=== PATIENT | female | born 1965 | race Caucasian/White ===

== ENCOUNTER 2018-05-17 00:16 | Outpatient (CLI) | payer MEDICAID, SELFPAY ==
--- NOTE | 2018-05-17 16:00 | DI.MAMMO_ITS ---
SYMPTOM/DIAGNOSIS: SCREENING, Z12.31 MAMMOGRAMS: Mammograms were interpreted according to the usual protocol including computer analysis with CAD system, tomosynthesis and C view imaging. The breast tissue is radiodense which lowers the sensitivity of the study. There is no dominant mass. There are numerous small bilateral punctate calcifications. No suspicious clusters are identified. There has been no appreciable interval change when compared with the prior study. SUMMARY: No evidence of malignancy. Category 2. Yearly screening mammography is recommended. Breast density, category D. MQSA ASSESSMENT OF FINDINGS: Negative with benign findings. Category 2. Patient will receive a letter notifying them of these results. BI-RADS category D. The breasts are extremely dense, which lowers the sensitivity of mammography.
== END 2018-05-17 00:36 ==
PROVIDERS: PCP Nurse Practitioner Family; Visit Provider Nurse Practitioner Family
DX: Z12.31 Encounter for screening mammogram for malignant neoplasm of breast (principal)
CPT/HCPCS: 77063; 77067

== ENCOUNTER 2020-11-13 11:57 | Outpatient (REF) | payer MEDICAID, SELFPAY ==
--- NOTE | 2020-11-13 16:15 | PAPFT_PTH ---
PATIENT: Newton Xie LOC: [facility] U#:[id number] AGE/SX: 54/F ROOM: RE11/13/[address]: Flaquita Dia APRN : 1965 BED: DIS: 11/13/2020 SPEC #: [id number] RECD: 11/14/20 12:57 STATUS: SUSAN REAna #: [id number] [place]: 11/13/20 16:[address]: Flaquita Dia DEPT: [facility] Cytology RECD BY: Falguni Car Tissues: 1 - CX/ENDOCX FOR PAP SMEARS Procedures: PAP THIN PREP/UVM Screening HPV DNA PROBE Comments: [id number]
== END 2020-11-13 11:58 | disposition home or self-care (01) ==
LOC: LBN 11:57
PROVIDERS: PCP Nurse Practitioner Family; Visit Provider Nurse Practitioner Family
DX: Z12.4 Encounter for screening for malignant neoplasm of cervix (principal); Z11.51 Encounter for screening for human papillomavirus (HPV); Z87.410 Personal history of cervical dysplasia; R87.610 Atypical squamous cells of undetermined significance on cytologic smear of cervix (ASC-US)
CPT/HCPCS: 88142; 87624

== ENCOUNTER 2020-11-20 03:37 | Outpatient (CLI) | payer MEDICAID, SELFPAY ==
[2020-11-20 09:35] LABS: Anion Gap 9.8 mmol/L (3-11); BUN 12 mg/dL (7-18); CO2 26.2 mmol/L (21.0-32.0); CREATININE 0.8 mg/dL (0.55-1.02); Calcium 8.9 mg/dL (8.5-10.1); Calculated LDL 75 mg/dL (<100); Chloride 106 mmol/L (98-107); Cholesterol 153 mg/dL (<200); Glucose 88 mg/dL (74-106); HDL Cholesterol 63 mg/dL (40-60); Potassium 4.3 mmol/L (3.5-5.1); Sodium 142 mmol/L (136-145); Triglyceride 79 mg/dL (<150)
== END 2020-11-20 03:38 | disposition home or self-care (01) ==
LOC: LBO 03:37
PROVIDERS: PCP Nurse Practitioner Family; Visit Provider Nurse Practitioner Family
DX: Z13.220 Encounter for screening for lipoid disorders (principal); Z13.1 Encounter for screening for diabetes mellitus
CPT/HCPCS: 36415; 80048; 80061

== ENCOUNTER 2020-12-09 02:19 | Outpatient (CLI) | payer MEDICAID, SELFPAY ==
--- NOTE | 2020-12-09 07:30 | DI.CTLCSR_ITS ---
Exam(s) CT CHEST LUNG CANCER SCREEN EXAM: CT CHEST LUNG CANCER SCREEN CLINICAL HISTORY: Screening for lung cancer,CURRENT SMOKER, F17.210,Z12.2. TECHNIQUE: Imaging Protocol: Low Dose Technique CONTRAST MATERIAL: None COMPARISON: CT CHEST HIGH RESOLUTION from 04/15/2015 FINDINGS: CHEST: LUNGS:. Biapical scarring noted. There is a 4 millimeter noncalcified nodular infiltrate in the righ t upper lobe sub apical region. There are no other significant focal right lung findings and there i s no pleural effusion. In the opposite-left lung there are mild benign-appearing increased markings anteriorly in the left u pper lobe-superior lingular segment region. Also mild increased markings in the medial aspect of the posterior basal segment left lower lobe. Also mild infiltrate in the inferior lingular segment of t he left lung. There are no pleural effusions on either side. No findings in the trachea and mainste m bronchi. MEDIASTINUM: There is no obvious hilar nor mediastinal adenopathy. CARDIAC: Heart size is normal. There is no pericardial effusion.Caliber of the thoracic aorta is wit hin normal limits. OTHER: OSSEOUS: No significant osseous lesions.. IMPRESSION: 1. There is a 4 millimeter noncalcified nodular infiltrate in the sub apical region of the right uppe r lobe. Not evident on the previous March 2015 study. 2. Other findings as above. No obvious intrathoracic adenopathy. No pleural effusions. 3. Lung RADS Cat 3 - Probably Benign: Probably benign finding(s) - short term follow-up suggested; in clude nodules with a low likelihood of becoming a clinically active cancer. Lung-RADS 1.0 CATEGORIES: Category 0 - Prior chest CT exam(s) being located for comparison. Category 1 - Annual screening in 12 months. No nodules or definitely benign nodules. Category 2 - Annual screening in 12 months. Benign appearance. Nodules with low likelihood of becomin g active cancer. Category 3 - 6-month follow-up. Probably benign. Short-term follow-up suggested. Nodules with low lik elihood of becoming active cancer. Category 4A - 3-month follow-up and CT/PET if >8 mm in size. Suspicious finding. Findings which requi re additional testing. Category 4B - Findings which require additional testing and tissue sampling. Modifier S- Potentially clinically significant findings (non lung cancer) RADIATION DOSE DELIVERED: 74.33mGy.cm Total DLP 1.84mGy CTDIvol DATA REPOSITORY: All CT scans at this facility are submitted to the National Radiology Data Registry (NRDR) Dose Index Registry (DIR) with the [employer] (ACR). RADIATION OPTIMIZATION: All CT scans at this facility use at least one of these dose optimization te chniques: automated exposure control; mA and/or kV adjustment per patient size (includes targeted exa ms where dose is matched to clinical indication); or iterative reconstruction.
--- NOTE | 2020-12-09 07:30 | DI.MAMMO_ITS ---
Exam(s) MAMMO SCREENING EXAM: MAMMO SCREENING CLINICAL HISTORY: screening,Z12.39. TECHNIQUE: Bilateral full field digital CC and MLO mammographic images were obtained with 3D tomosyn thesis and utilizing computer aided detection (CAD). COMPARISON: Prior mammograms dating back to 2011, the most recent being April 2018. FINDINGS: Fibroglandular tissue pattern is again noted be very dense, this decreasing the sensitivity of the ma mmogram for finding in underlying lesions. No new obvious radiographic findings in left breast. In the right breast there is an asymmetric density-possible nodule seen on the CC view located approx imately 2 cm in from the nipple measuring 6 x 5 millimeters. There is no significant architectural distortion nor skin thickening-retraction. Benign microcalcifications again noted throughout both breasts. IMPRESSION: Very dense bilateral fibroglandular tissue. No obvious radiographic evidence of malignancy in left b reast. However, there is suggestion of a 6 millimeter possible nodule in the anterior right breast l ocated approximately 1.7 cm in from the nipple, seen on the CC view.. Spot compression view and ultr asound recommended. The ultrasound examination should be a both breasts given the density of this pa tient's fibroglandular tissue. BI-RADS Category 0 - Assessment Incomplete: Need additional imaging evaluation Breast Density - Category D - Extremely dense Breast density Category C or D implies that the patient has dense breast tissue. Dense breast tissue can make it harder to find cancer on a mammogram. Dense breast tissue is also associated with an incr eased risk of breast cancer. This information about the result of the mammogram report was provided to the patient to raise their awareness. Use this report when you speak with the patient about their risks for breast cancer, which includes their family history. At that time, you may recommend additional screening tests (Ultrasoun d or MRI) as these tests may add significant information. A negative radiographic report should not delay biopsy if a dominant or clinically suspicious mass is present. Up to ten percent of cancers are not identified on mammography. A negative report may reinforce clinical impression. Adenosis and dense breasts may obscure an underlying neoplasm. False positive reports average 6 to 10%. Patient will receive a letter notifying them of these results.
== END 2020-12-09 02:39 ==
PROVIDERS: PCP Nurse Practitioner Family; Visit Provider Nurse Practitioner Family
DX: Z12.31 Encounter for screening mammogram for malignant neoplasm of breast (principal); Z12.2 Encounter for screening for malignant neoplasm of respiratory organs; R92.8 Other abnormal and inconclusive findings on diagnostic imaging of breast; F17.210 Nicotine dependence, cigarettes, uncomplicated; R91.8 Other nonspecific abnormal finding of lung field
CPT/HCPCS: 71271; 77063; 77067

== ENCOUNTER 2020-12-19 02:18 | Outpatient (CLI) | payer MEDICAID, SELFPAY ==
--- NOTE | 2020-12-19 09:00 | DI.CT_ITS ---
Exam(s) CT CHEST W EXAM: CT CHEST W CLINICAL HISTORY: 6 mo f/u from abnormal LDCT; RUL nodule, R91.1. TECHNIQUE: Multi planar reconstructions were performed. CONTRAST MATERIAL: Omnipaque 350; 75 cc COMPARISON: CT CT CHEST LUNG CANCER SCREEN from 12/09/2020 FINDINGS: CHEST: LUNGS: Biapical scarring again noted. In the right upper lobe the recently described 4 millimeter no dule is unchanged. There are no new additional right upper lobe findings but there is now some subpl eural mild infiltrate evident in the lateral segment of the right middle lobe, not evident 10 days ag o. No pleural effusion. In the opposite-left lung the previously described findings in the lingular segment and left lower lo be have mostly cleared. No new left lung findings. No pleural effusions. No obvious hilar nor medi astinal adenopathy. No axillary adenopathy. MEDIASTINUM: There is no hilar nor mediastinal adenopathy. Visualized thyroid unremarkable. CARDIAC: Heart size is normal. There is no pericardial effusion.Caliber of the thoracic aorta is wit hin normal limits. VISUALIZED UPPER ABDOMEN:There are no significant adrenal masses. OSSEOUS: No significant osseous lesions.. IMPRESSION: 1. The recently described increased markings at at various locations in left lung have mostly resolve d and there are no new left lung findings. There is stable appearance of the 4 millimeter nodule in the right upper lobe. There is some new mild subpleural infiltrate in the lateral segment of the rig ht middle lobe, this not evident 10 days ago. Most probably infectious/inflammatory. There are no p leural effusions nor intrathoracic adenopathy. RADIATION DOSE DELIVERED: 354.76mGy.cm Total DLP DATA REPOSITORY: All CT scans at this facility are submitted to the National Radiology Data Registry (NRDR) Dose Index Registry (DIR) with the [employer] (ACR). RADIATION OPTIMIZATION: All CT scans at this facility use at least one of these dose optimization te chniques: automated exposure control; mA and/or kV adjustment per patient size (includes targeted exa ms where dose is matched to clinical indication); or iterative reconstruction.
[2020-12-19] MEDS: Omnipaque 350 MG/ML 100 ML BTL IV (15:21)
== END 2020-12-19 02:38 ==
PROVIDERS: PCP Nurse Practitioner Family; Visit Provider Nurse Practitioner Family
DX: R91.1 Solitary pulmonary nodule (principal); R91.8 Other nonspecific abnormal finding of lung field
CPT/HCPCS: 71260; J3490

== ENCOUNTER 2021-01-06 03:01 | Outpatient (CLI) | payer MEDICAID, SELFPAY ==
--- NOTE | 2021-01-06 | DI.US_ITS ---
Exam(s) MG MAMMO SCREEN CALL BACK UNI US BREAST LT COMPLETE US BREAST RT COMPLETE EXAM: MG MAMMO SCREEN CALL BACK UNI CLINICAL HISTORY: F/U MAMMO, ASYMMETRIC DENSITY RT, ? NODULE. TECHNIQUE: Craniocaudal and mediolateral oblique spot compression digital Mammography views of the r ight breast with Computer Aided Diagnosis followed by Tomosynthesis andbilateral breast ultrasound. COMPARISON: MG Screening Bilat Mammo from 01/23/2015 MG Screening Bilat Mammo from 01/29/2016 MG Screening Bilat Mammo from 05/10/2017 MG Screening Bilat Mammo from 05/10/2017 MG MG mammo screening from 05/17/2018 MG MG mammo screening from 05/17/2018 MG MG MAMMO SCREENING from 12/09/2020 US US BREAST LT COMPLETE from 01/06/2021 US US BREAST LT COMPLETE from 01/06/2021 US US BREAST RT COMPLETE from 01/06/2021 US US BREAST RT COMPLETE from 01/06/2021 FINDINGS: Mammography/Tomosynthesis: Masses/Architectural Distortion: None seen. Microcalcifictions: No suspicious pleomorphic-type are seen. Scattered benign calcifications . Skin Thickening/Nipple Retraction: None. Bilateral breast US: Echotexture: Normal appearance of the glandular tissue. Shadowing: No suspicious foci. Cyst: None. Solid lesions: None seen. Ductal dilation: None. IMPRESSION: 1. No evidence of malignancy is noted. 2. Unless there is more urgent need, follow-up screening mammography is recommended, as per [employer] [place] guidelines. 3. The findings were discussed with the patient on the date of the examination. BI-RADS Category 2 - Benign Findings Breast Density - Category D - Extremely dense A mammogram that demonstrates density of C or D indicates the patient's breast tissue is dense. Dense breast tissue is very common and is not abnormal, but dense breast tissue can make it harder to find cancer on a mammogram. Also, dense breast tissue may increase their breast cancer risk. This informa tion about the result of the mammogram report was provided to the patient to raise their awareness. U se this report when you speak with the patient about their risks for breast cancer, which includes th eir family history. At that time, you may recommend for more screening tests (Ultrasound or MRI) as t hey might be useful based on their risk. A negative radiographic report should not delay biopsy if a dominant or clinically suspicious mass is present. Up to ten percent of cancers are not identified on mammography. A negative report may reinforce clinical impression. Adenosis and dense breasts may obscure an underlying neoplasm. False positive reports average 6 to 10%. Patient will receive a letter notifying them of these results.
== END 2021-01-06 03:21 ==
PROVIDERS: PCP Nurse Practitioner Family; Visit Provider Nurse Practitioner Family
DX: R92.8 Other abnormal and inconclusive findings on diagnostic imaging of breast (principal)
CPT/HCPCS: 76642; 77063; 77067

== ENCOUNTER 2021-06-27 01:46 | Outpatient (CLI) | payer MEDICAID, SELFPAY ==
[2021-06-27 12:17] LABS: Source Nasal/Nares
[2021-06-27 15:39] LABS: COVID-19 PCR Negative (Negative)
== END 2021-06-27 01:47 | disposition home or self-care (01) ==
LOC: LBO 01:46
PROVIDERS: PCP Nurse Practitioner Family; Visit Provider Surgery
DX: Z20.822 Contact with and (suspected) exposure to COVID-19 (principal)
CPT/HCPCS: 87635

== ENCOUNTER 2021-06-30 06:54 | Day surgery (SDC) | payer MEDICAID, SELFPAY ==
--- NOTE | 2021-06-29 18:50 | ANES.PREOP_ITS ---
General Info Date of Service Date Performed: 06/30/21 Height: 5 ft 4.5 in Weight: 63.276 kg Body Mass Index (BMI): 23.6 Surgical Procedure: Operation Date: 06/30/21 08:20 Proposed Procedure Side Surgeon p Colonoscopy Mariza Luna MD Meds Allergies and Home Medications Allergies Allergy/AdvReac Type Severity Reaction Status Date / Time No Known Allergies Allergy Verified 06/30/21 07:01 Home Medication Medication Instructions Recorded cyclobenzaprine 10 mg tablet 10 mg PO TID PRN #30 tab-cap 12/20/17 albuterol sulfate 90 mcg/actuation 1 - 2 inh INHALATION .Q4-6H PRN #1 02/27/19 aerosol inhaler (ProAir HFA) unit budesonide-formoterol HFA 160 2 puff INHALATION BID #3 inhaler 02/27/19 mcg-4.5 mcg/actuation aerosol inhaler (Symbicort) nicotine 14 mg/24 hr daily 1 patch TRANSDERMAL DAILY #28 ea 11/13/20 transdermal patch nicotine 7 mg/24 hr daily 1 patch TRANSDERMAL Q24H #14 ea 11/13/20 transdermal patch bisacodyl 5 mg tablet,delayed 5 mg PO ONCE #4 tab 06/12/21 release (Dulcolax (bisacodyl)) polyethylene glycol 3350 17 17 g PO ONCE #238 g 06/12/21 gram/dose oral powder Current Visit Medications: Current Medications Generic Name Dose Route Start Last Admin Trade Name Freq PRN Reason Stop Dose Admin Ringer's Solution 1,000 mls @ 80 mls/hr 06/30/21 06:00 IV 07/24/21 23:59 INFUSION ELMER IV Miscellaneous Supplies 1 each 06/30/21 06:00 Iv Access IV 07/24/21 23:59 DIRECTED ELMER Sodium Chloride 0 ml 06/30/21 06:00 Normal Saline Flush 10 Ml Syr IV 07/24/21 23:59 PRN PRN Sodium Chloride 0 ml 06/30/21 06:00 Normal Saline 10 Ml Vial IJ 07/24/21 23:59 DIRECTED PRN Sterile Water 0 ml 06/30/21 06:00 Water,Injection,Sterile 10 Ml Vial IJ 07/24/21 23:59 DIRECTED PRN PFSH Active Problems Active Problems: Problem Status Onset Code Encounter for screening for malignant neoplasm of colon Z12.11 Medical History Medical History ASCUS of cervix with negative high risk HPV (~11/29/20) Repeat co-testing 3 years Cervical dysplasia Chronic obstructive pulmonary disease (08/09/15) Renzo Sykes COPD w/isolated low difusion capacity Depressive disorder (08/19/11) Encounter for screening for lipid disorder 10/2020 labs: 10-year ASCVD risk = ~2.2% Gastroesophageal reflux disease (02/02/12) Low back pain (11/08/12) Intermittent, work-related Lung nodule 11/2020 LDCT: RUL --> recommended 6 month f/u Positive test for human papillomavirus (HPV) (01/05/12) 06/2011: neg pap with +HPV Tobacco use disorder Surgical History Surgical History Cervical Conization/LEEP ~1986 Cervical dysplasia S/p laser ablation 1986 Colonoscopy - IV Sedation (07/27/14) Tobacco Smoking/Tobacco Use Status: Current every day Tobacco Type: cigarettes Smoking packs per day: 1.0 Smoking cigarettes per day: 20.0 Years smoked: 37 Smoking pack-years: 37.00 Passive smoking exposure: Yes Alcohol Alcohol Intake: former Substance Use Substance use: Daily Substance use type: marijuana Vital Signs and Lab Results Vital Signs Most Recent Vital Signs in EMR: Temp Pulse Resp BP Pulse Ox 36.4 C L 78 16 113/78 99 06/30/21 07:07 06/30/21 07:07 06/30/21 07:07 06/30/21 07:07 06/30/21 07:07 Lab Results Blood Type / Crossmatch: No Data to Display Complete Blood Count: No Data to Display Complete Metabolic Panel: 2 No Data to Display Liver Function Panel: No Data to Display Coagulation Panel: No Data to Display Cardiac Panel: No Data to Display Arterial Blood Gas: No Data to Display Venous Blood Gas: No Data to Display Pancreas Panel: No Data to Display Thyroid Panel: No Data to Display Infectious Disease: Coronavirus (COVID-19)(PCR) Negative (Negative) 06/27/21 08:31 06/27/21 Coronavirus 2019 Source Nasal/Nares 06/27/21 08:31 06/27/21 Blood Cultures: No Data to Display Toxicology Panel: No Data to Display Imaging and Studies Imaging and Studies Study information below may be from another EMR and interpreted by another provider. Please see original notes in EMR for more complete details. Echocardiogram Summary: 2015: LVEF 55%, mild AR/MR, PAS 20 mmhg. Anesthesia Assessment and Plan Anesthesia History Personal History: No History of Anesthesia Complications Family History: No Family History of Anesthesia Complications Exercise Tolerance Exercise Tolerance: Metabolic Equivalents>4 Cardiac & Pulmonary Exam Cardiac Exam: Normal S1/S2 Heart Sounds Pulmonary Exam: Clear Bilateral Breath Sounds Implantable Cardiac Device Does patient have a Pacemaker or an ICD?: No Airway Exam Known Difficult Airway: No Mallampati Class: 3 Mouth Opening: Normal (> 3cm) Thyromental Distance: Greater than 3 cm Neck Range of Motion: Full ROM Neck Circumference: Normal Teeth Condition: Normal Dentition ASA Classification ASA Score: ASA 2 Emergency Case?: No NPO Status NPO Status: NPO Clears >2 hours, Solids >8 hours Anesthesia Plan Resuscitation Status: Full Code Anesthesia Technique: General Anesthesia Airway Planned: Natural Airway Monitors Used: Standard Monitors Preoperative Comments:: 55 yo female for screening colo. Sig PMHx: COPD (albuterol/Symbicort), GERD, current smoker (tobacco/cannabis)
--- NOTE | 2021-06-30 06:57 | W.COLOREPORT ---
Colonoscopy Report Date of procedure: 06/30/21 Pre-op diagnosis general: Colon Cancer Screening/ Family history Post-op diagnosis procedure note: same Procedure: Colonoscopy Surgeon: Mariza Luna Anesthesia Type: General:No Airway Estimated blood loss (mL): 0 Pathology: none sent Complications: None Disposition: same day Indications: The patient is here for Colonoscopy pre-op. Her last screening was in 2014 and was unremarkable. She has a family history of colon cancer in her father. She has not had any bowel habit changes. -Discussed colonoscopy bowel prep as well as the procedure. Discussed possible complications of the procedure to include bleeding, pain, perforation, missed small lesion/polyp, sore throat, aspiration and adverse reaction to the medications. Questions were answered to patient?s satisfaction. No guarantees were implied or given.? Prep: Miralax/Dulcolax Procedure Start Time: 08:12 Procedure End Time: 08:37 Retraction Time: 11 minutes Findings: Normal colon Procedure Description: After informed consent was obtained the patient was taken to the procedure room and placed in a left decubitous position. Monitors were applied and a time out was done. The patients name, date of , procedure, allergies to medications and metal in their body was reviewed. The patient was then sedated. Once sedated and comfortable a rectal exam was done. External exam was normal. Internal exam revealed a normal sphincter tone and no palpable masses. The scope was then introduced and retro-flexed. No internal hemorrhoids, polyps or masses were identified on retro-flexion. The scope was then advanced to the cecum without difficulty. The ileocecal vlave and appendiceal orifice were identified. The prep was adequate. The scope was then slowly retracted over 11 minutes back into the rectum. There were no polyps and no diverticulosis. The scope was removed and the patient was woken up and taken back to Same day surgery in stable condition. The patient tolerated the procedure well and there were no immediate complications. Follow up: The patient should follow up in 5 years unless they develop changes in bowel habits or other new gastrointestinal complaints.
--- NOTE | 2021-06-30 06:58 | W.PM.DSUDISC ---
Discharge Plan Disposition Patient Disposition: HOME Condition: Stable Discharge Details Reason For Visit: Colonoscopy Attending Provider: Mariza Luna Primary Care Provider: Flaquita Dia Home Meds and New Rx's Prescriptions: Continued nicotine 14 mg/24 hr patch 24 hour 1 patch transdermal DAILY Qty: 28 1RF nicotine 7 mg/24 hr patch 24 hour 1 patch transdermal Q24H Qty: 14 1RF cyclobenzaprine 10 MG tablet 10 mg PO TID PRNQty: 30 0RF Varicella-Zoster Ge/As01b/Pf [Shingrix Vial Kit] 50 MCG INJ 50 mcg IM ONCE Qty: 1 1RF Rx Instructions: 50 mcg IM administered as a 2-dose series at 0 and 2-6 months albuterol sulfate [ProAir HFA] 90 mcg/actuation HFA aerosol inhaler 1 - 2 inh Inhalation .Q4-6H PRN (Reason: shortness of breath or wheezing) Qty: 1 3RF Rx Instructions: Dispense covered brand albuterol inhaler budesonide-formoterol [Symbicort] 160-4.5 mcg/actuation HFA aerosol inhaler 2 puff Inhalation BID Qty: 3 3RF Discontinued bisacodyl [Dulcolax (bisacodyl)] 5 mg tablet,delayed release (DR/EC) 5 mg PO ONCE Qty: 4 0RF Rx Instructions: Take according to provider's instructions for colonoscopy prep. polyethylene glycol 3350 17 gram/dose powder 17 g PO ONCE Qty: 238 0RF Rx Instructions: To be taken as directed by prescriber's office for colonoscopy prep. Discharge Instructions Additional Instructions: Findings: Normal colon Follow up: 5 years Please call if you develop: fevers >101.5 Nausea or Vomiting Abdominal pain that is not transient Rectal bleeding that is more then a tbsp A hard abdomen and inability to pass gas DAY SURGERY UNIT POST ENDOSCOPY INSTRUCTIONS Instructions for everyone who is given Anesthesia: For your safety, please do the following for the next 24 Hours: a. Do not drive or operate dangerous equipment b. Do not drink alcohol beverages or use any recreational drugs for the first 24 hours or while taking pain medications. The medications in your body may have a reaction that can be dangerous. c. Do not make any important decisions or sign any important papers 1. Generally there are no restrictions on your activity after a day or so has gone by, but you may feel a bit fatigued for a few days. 2. After you arrive home you may have a light meal and return to a normal diet as you can tolerate it without feeling sick to your stomach. 3. After surgery, you may feel pain or discomfort. This should be only transient, but if it persists please contact your doctor. 4. If there are any questions regarding the findings of your procedure, please feel free to contact your doctor. 6. If you are unable to contact your doctor with a problem, contact the hospital at [phone]. 7. Continue all your regular medications unless directed otherwise. I understand the above instructions and have no questions. Signature of Patient or Responsible Adult Escort Date/Time Name of Responsible Adult Escort Signature of Nurse Date/Time Activity:: Activity as Tolerated Diet:: As Tolerated Discharge Orders Discharge Orders: Discharge Order (Routine); Ordered 06/30/21 Ordered By: Mariza Luna
[2021-06-30 07:07] VITALS: BP 113/78; PULSE 78; RESP 16; TEMP 36.4; O2SAT 99
[2021-06-30] MEDS: Lactated Ringers 1,000 ML 80 ML IV (07:23)
[2021-06-30 08:01] VITALS: BMI 23.6
[2021-06-30 08:45] VITALS: BP 116/65; PULSE 73; RESP 16; TEMP 36.3; O2SAT 100
--- NOTE | 2021-06-30 09:03 | W.ANESPOSTOP ---
Postoperative Evaluation Date, Time and Location Date Performed: 06/30/21 Time Performed: 09:00 Patient Location: Day Surgery Unit Vital Signs Most Recent Imported Vital Signs: Most Recent Vital Signs Temp Pulse Resp BP Pulse Ox 36.3 C L 73 16 116/65 100 06/30/21 08:45 06/30/21 08:45 06/30/21 08:45 06/30/21 08:45 06/30/21 08:45 Pain Score Most Recent Pain Score: Most Recent Pain Score Pain Level 0 06/30/21 08:45 Assessment Mental Status: Awake (Alert & Oriented to Patient Baseline) Airway and Respiratory Function: Patent airway with normal (patient baseline) respiratory exam Cardiovascular Function: Hemodynamically Stable Hydration Status: Adequately Hydrated Nausea & Vomiting: No Nausea or Vomiting Pain: Pt. Denies Any Pain Peripheral Nerve Block: Patient did not receive a nerve block
[2021-06-30 09:15] VITALS: BP 103/74; PULSE 73; RESP 18; TEMP 36.5; O2SAT 99
== END 2021-06-30 09:28 | disposition home or self-care (01) ==
PROVIDERS: PCP Nurse Practitioner Family; Visit Provider Surgery
PROC: 0DJD8ZZ Inspection of Lower Intestinal Tract, Via Natural or Artificial Opening Endoscopic (ICD-10-PCS; CPT 45378; principal; 2021-06-30 08:15)
DX: Z12.11 Encounter for screening for malignant neoplasm of colon (principal); Z80.0 Family history of malignant neoplasm of digestive organs; J44.9 Chronic obstructive pulmonary disease, unspecified; K21.9 Gastro-esophageal reflux disease without esophagitis; F17.210 Nicotine dependence, cigarettes, uncomplicated
CPT/HCPCS: 45378; J2001

== ENCOUNTER → 2022-01-12 02:46 | Outpatient (CLI) | payer MEDICAID, SELFPAY ==
--- NOTE | 2022-01-12 07:30 | DI.CTLCSR_ITS ---
Exam(s) CT CHEST LUNG CANCER SCREEN EXAM: CT CHEST LUNG CANCER SCREEN CLINICAL HISTORY: Screening for lung cancer,current smoker, f17.210 TECHNIQUE: Imaging Protocol: Axial computed tomography images with coronal and sagittal reformatted images were created and reviewed. Low dose screening protocol. COMPARISON: CT CT CHEST W from 12/19/2020 FINDINGS: Tracheobronchial tree: No bronchiectasis or mucus plugging.. Mediastinum and Sunni: No dominant adenopathy or fluid collection. Pulmonary parenchyma: No consolidation or dominant measurable mass. Mild emphysematous changes. Mild biapical scarring. Lung Nodules: Stable 4 millimeter nodule right upper lobe. No new nodules Pleura: No effusion. No pneumothorax. Heart: The heart is not dilated. Mild coronary artery calcifications are seen. Aorta: Thoracic aorta non-dilated. Upper abdomen: Unremarkable. Bones: Unremarkable for age. Soft Tissues: Unremarkable. IMPRESSION: No suspicious pulmonary nodules. Lung RADS Cat 2 - Benign Appearance / Behavior: Nodules with a very low likelihood of becoming a clin ically active cancer due to size or lack of growth Lung-RADS 1.0 CATEGORIES: Category 0 - Prior chest CT exam(s) being located for comparison. Category 1 - Annual screening in 12 months. No nodules or definitely benign nodules. Category 2 - Annual screening in 12 months. Benign appearance. Nodules with low likelihood of becomin g active cancer. Category 3 - 6-month follow-up. Probably benign. Short-term follow-up suggested. Nodules with low lik elihood of becoming active cancer. Category 4A - 3-month follow-up and CT/PET if >8 mm in size. Suspicious finding. Findings which requi re additional testing. Category 4B - Findings which require additional testing and tissue sampling. Category 4X - Category 3 or 4 nodules with additional features or imaging findings that increases the suspicion of malignancy. Modifier S- Potentially clinically significant findings (non lung cancer) RADIATION DOSE DELIVERED: 75.97mGy.cm Total DLP 1.84mGy CTDIvol DATA REPOSITORY: All CT scans at this facility are submitted to the National Radiology Data Registry (NRDR) Dose Index Registry (DIR) with the [employer] (ACR). RADIATION OPTIMIZATION: All CT scans at this facility use at least one of these dose optimization te chniques: automated exposure control; mA and/or kV adjustment per patient size (includes targeted exa ms where dose is matched to clinical indication); or iterative reconstruction.
--- NOTE | 2022-01-12 07:30 | DI.MAMMO_ITS ---
Exam(s) MAMMO SCREENING EXAM: MAMMO SCREENING CLINICAL HISTORY: screening,z12.39. TECHNIQUE: Bilateral full field digital CC and MLO mammographic images were obtained with 3D tomosyn thesis and utilizing computer aided detection (CAD). COMPARISON: 2012 through 2020 FINDINGS: Masses/Architectural Distortion: None seen. Microcalcifications: No suspicious pleomorphic-type are seen. Scattered benign calcifications are a gain noted. Skin Thickening/Nipple Retraction: None. IMPRESSION: 1. No significant interval change with no specific features of malignancy noted. 2. Unless there is more urgent need, annual screening mammography is recommended, as per [place] [employer] guidelines. BI-RADS Category 1-negative Breast Density - Category D - extremely dense Breast Density Category D: The mammogram demonstrates the patient's breast tissue is dense. Dense tobias ast tissue is very common and is not abnormal but dense breast tissue can make it harder to find canc er on a mammogram. Also, dense breast tissue may increase their breast cancer risk. This information about the result of the mammogram report was provided to the patient to raise their awareness. Use th is report when you speak with the patient about their risks for breast cancer, which includes their f amily history. At that time, you may recommend for more screening tests (Ultrasound or MRI) as they m ight be useful based on their risk. A negative radiographic report should not delay biopsy if a dominant or clinically suspicious mass is present. Up to ten percent of cancers are not identified on mammography. A negative report may reinforce clinical impression. Adenosis and dense breasts may obscure an underlying neoplasm. False positive reports average 6 to 10%.
== END ==
PROVIDERS: PCP Nurse Practitioner Family; Visit Provider Nurse Practitioner
DX: Z12.31 Encounter for screening mammogram for malignant neoplasm of breast (principal); Z12.2 Encounter for screening for malignant neoplasm of respiratory organs; F17.210 Nicotine dependence, cigarettes, uncomplicated; R91.1 Solitary pulmonary nodule
CPT/HCPCS: 71271; 77063; 77067

== ENCOUNTER 2022-05-04 14:15 | Outpatient (CLI) | payer MEDICAID, SELFPAY ==
--- NOTE | 2022-05-04 14:57 | DI.RAD_ITS ---
Exam(s) XR KNEE LT 4V AP,LAT,CASEY,PAT EXAM: XR KNEE LT 4V AP,LAT,CASEY,PAT CLINICAL HISTORY: L knee pain. TECHNIQUE: 2D digital imaging was performed. Three views. COMPARISON: No exams were available for comparison FINDINGS: BONES: No acute fracture is present. No bony destructive lesion is seen. JOINTS: The knee is normally aligned. No joint effusion is seen. Mild narrowing patellofemoral join t with mild periarticular spurring. Mild spurring at the medial femoral condyle medial tibial platea u and tibial spines. SOFT TISSUE: Normal. IMPRESSION: Degenerative changes greatest of the lateral patellofemoral joint. With DATA REPOSITORY: RADIATION DOSE DELIVERED:
== END 2022-05-04 14:16 | disposition home or self-care (01) ==
LOC: DIORS 05-05 08:53
PROVIDERS: PCP Nurse Practitioner Family; Visit Provider Physician Assistant
DX: M25.562 Pain in left knee (principal); M17.12 Unilateral primary osteoarthritis, left knee
CPT/HCPCS: 73564

== ENCOUNTER → 2023-03-19 00:09 | Outpatient (CLI) | payer MEDICAID, SELFPAY ==
--- NOTE | 2023-03-19 07:45 | DI.MAMMO_ITS ---
Exam(s) MAMMO SCREENING EXAM: MAMMO SCREENING CLINICAL HISTORY: screening,Z12.39 TECHNIQUE: Bilateral full field digital CC and MLO mammographic images were obtained with 3D tomosyn thesis and utilizing computer aided detection (CAD). COMPARISON: Available for comparison. FINDINGS: Masses/Architectural Distortion: None seen. Microcalcifications: No suspicious pleomorphic-type are seen. Skin Thickening/Nipple Retraction: None. IMPRESSION: 1. No significant interval change with no specific features of malignancy noted. 2. Unless there is more urgent need, screening mammography is recommended, as per [employer] guidelines. BI-RADS Category 1 - Negative Breast Density - Category D - Extremely dense Breast density category C or D implies that the patient has dense breast tissue. Dense breast tissue is very common and is not abnormal but dense breast tissue can make it harder to find cancer on a ma mmogram. Also, dense breast tissue may increase their breast cancer risk. This information about the result of the mammogram report was provided to the patient to raise their awareness. Use this report when you speak with the patient about their risks for breast cancer, which includes their family hist ory. At that time, you may recommend for more screening tests (Ultrasound or MRI) as they might be us eful based on their risk. A negative radiographic report should not delay biopsy if a dominant or clinically suspicious mass is present. Up to ten percent of cancers are not identified on mammography. A negative report may reinforce clinical impression. Adenosis and dense breasts may obscure an underlying neoplasm. False positive reports average 6 to 10%. Patient will receive a letter notifying them of these results.
--- NOTE | 2023-03-19 15:20 | DI.CTLCSR_ITS ---
Exam(s) CT CHEST LUNG CANCER SCREEN EXAM: CT CHEST LUNG CANCER SCREEN CLINICAL HISTORY: Screening for lung cancer,CURRENT SMOKER, F17.210 TECHNIQUE: Imaging Protocol: Axial computed tomography images with coronal and sagittal reformatted images were created and reviewed COMPARISON: CT CT CHEST LUNG CANCER SCREEN from 01/12/2022 FINDINGS: Tracheobronchial tree: Patent where visualized. Pulmonary parenchyma: No consolidation or dominant measurable mass. Mild emphysematous changes are pr esent in the lungs. Lung Nodules: Stable nodule seen in the right upper lobe. Mediastinum and Sunni: No dominant adenopathy or fluid collection. The esophagus is unremarkable. Thyroid gland: Unremarkable. Lymph nodes: Unremarkable. Pleura: No effusion or pneumothorax. Heart: The heart is not dilated. Coronary artery calcifications are present. No pericardial effusion . Aorta: Thoracic aorta non-dilated.Atherosclerosis. Upper abdomen: Unremarkable. Soft Tissues: Unremarkable. Bones: Within normal limits for the patient's age. IMPRESSION: Stable right upper lobe pulmonary nodule. Lung RADS Cat 2 - Benign Appearance / Behavior: Nodules with a very low likelihood of becoming a clin ically active cancer due to size or lack of growth Lung-RADS 1.0 CATEGORIES: Category 0 - Prior chest CT exam(s) being located for comparison. Category 1 - Annual screening in 12 months. No nodules or definitely benign nodules. Category 2 - Annual screening in 12 months. Benign appearance. Nodules with low likelihood of becomin g active cancer. Category 3 - 6-month follow-up. Probably benign. Short-term follow-up suggested. Nodules with low lik elihood of becoming active cancer. Category 4A - 3-month follow-up and CT/PET if >8 mm in size. Suspicious finding. Findings which requi re additional testing. Category 4B - Findings which require additional testing and tissue sampling. Suspicious finding. Category 4X - Category 3 or 4 nodules with additional features or imaging findings that increases the suspicion of malignancy. Modifier S- Potentially clinically significant finding. (Non lung cancer) RADIATION DOSE DELIVERED: Total DLP Total DLP DATA REPOSITORY: All CT scans at this facility are submitted to the National Radiology Data Registry (NRDR) Dose Index Registry (DIR) with the [employer] (ACR). RADIATION OPTIMIZATION: All CT scans at this facility use at least one of these dose optimization te chniques: automated exposure control; mA and/or kV adjustment per patient size (includes targeted exa ms where dose is matched to clinical indication); or iterative reconstruction.
== END ==
PROVIDERS: PCP Nurse Practitioner Family; Visit Provider Nurse Practitioner
DX: Z12.31 Encounter for screening mammogram for malignant neoplasm of breast (principal); F17.210 Nicotine dependence, cigarettes, uncomplicated; Z12.2 Encounter for screening for malignant neoplasm of respiratory organs; R91.1 Solitary pulmonary nodule
CPT/HCPCS: 71271; 77063; 77067

== ENCOUNTER 2023-03-22 03:22 | Outpatient (CLI) | payer MEDICAID, SELFPAY ==
[2023-03-22 09:01] LABS: Abs Immature Grans 0.01 10^3/uL (0.0-0.06); Absolute Basophil Count 0.05 10^3/uL (0.0-0.2); Absolute Eosinophil Count 0.13 10^3/uL (0.0-0.7); Absolute Lymphocyte Count 1.96 10^3/uL (1.2-3.4); Absolute Monocyte Count 0.56 10^3/uL (0.1-0.8); Absolute Neutrophil Count 3.03 10^3/uL (1.2-6.7); Basophils % 0.9; Eosinophils % 2.3; HCT 39.6 % (36.0-46.0); Immature Grans % 0.2; Lymphocytes % 34.1; MCH 30.7 pg (27.0-33.0); MCHC 32.8 % (32.0-36.0); MCV 93 fL (80-95); MPV 10.4 fL (8.0-11.0); Monocytes % 9.8; Neutrophils % 52.7; Platelet Count 239 10^3/uL (130-400); RBC 4.24 10^6/uL (3.93-5.22); RDW 13.4 % (11.7-14.6); WBC 5.74 10^3/uL (4.4-10.8)
[2023-03-22 09:10] LABS: ALT 16 U/L (14-59); AST 19 U/L (15-37); Albumin 3.5 g/dL (3.4-5.0); Alkaline Phosphatase 78 U/L (46-116); Anion Gap 8.6 mmol/L (3-11); BUN 13 mg/dL (7-18); Bilirubin, Total 0.4 mg/dL (0.2-1.0); CO2 27.4 mmol/L (21.0-32.0); CREATININE 0.9 mg/dL (0.55-1.02); Calculated LDL 84 mg/dL (<100); Chloride 101 mmol/L (98-107); Cholesterol 166 mg/dL (<200); Estimated GFR 73.64 (mL/min/1.73m2); Glucose 103 mg/dL (74-106); HDL Cholesterol 70 mg/dL (40-60); Potassium 4.4 mmol/L (3.5-5.1); Sodium 137 mmol/L (136-145); Total Protein 8.2 g/dL (6.4-8.2); Triglyceride 61 mg/dL (<150)
== END 2023-03-22 03:23 | disposition home or self-care (01) ==
LOC: LBO 03:22
PROVIDERS: PCP Nurse Practitioner Family; Visit Provider Nurse Practitioner
DX: R91.1 Solitary pulmonary nodule (principal); Z13.220 Encounter for screening for lipoid disorders; J45.909 Unspecified asthma, uncomplicated
CPT/HCPCS: 36415; 80053; 80061; 85025

== ENCOUNTER 2024-03-20 10:39 | Outpatient (REF) | payer MEDICAID, SELFPAY ==
--- NOTE | 2024-03-20 10:15 | PAPFT_PTH ---
PATIENT: Newton Xie LOC: [facility] U#:[id number] AGE/SX: 58/F ROOM: RE03/20/[address]: Bhavna Oropeza APRN : 1965 BED: DIS: 03/20/2024 SPEC #: [id number] RECD: 03/20/24 17:40 STATUS: SUSAN REAna #: [id number] [place]: 03/20/24 10:[address]: Bhavna Oropeza DEPT: [facility] Cytology RECD BY: Falguni Car Tissues: 1 - CX/ENDOCX FOR PAP SMEARS Procedures: PAP THIN PREP/[facility] Screening HPV DNA PROBE Comments: [id number] (HPV 16 & 18/45)
== END 2024-03-20 10:40 | disposition home or self-care (01) ==
LOC: LBN 10:39
PROVIDERS: PCP Nurse Practitioner; Visit Provider Nurse Practitioner
DX: N89.8 Other specified noninflammatory disorders of vagina (principal); R30.0 Dysuria
CPT/HCPCS: 87077; 88142; 87086; 87186; 87480; 87510; 87624; 87660

== ENCOUNTER 2024-09-11 02:55 | Outpatient (CLI) | payer MEDICAID, SELFPAY ==
--- NOTE | 2024-09-11 06:45 | DI.CTLCSR_ITS ---
Exam(s) CT CHEST LUNG CANCER SCREEN EXAM: CT CHEST LUNG CANCER SCREEN CLINICAL HISTORY: Screening for lung cancer,[facility],z00.00,current smoker TECHNIQUE: Imaging Protocol: Axial computed tomography images with coronal and sagittal reformatted images were created and reviewed. Lung Computer Aided Detection (CAD) was utilized. COMPARISON: CT CT CHEST LUNG CANCER SCREEN from 12/09/[address] CHEST LUNG CANCER SCREEN from 01/12/[address] CHEST LUNG CANCER SCREEN from 03/19/2023 FINDINGS: Tracheobronchial tree: Patent where visualized. No bronchiectasis. Pulmonary parenchyma: No consolidation or dominant measurable mass. No architectural distortion. Ther e is biapical scarring, right greater than left. Lung Nodules: The 4 mm nodule in the right upper lobe is unchanged (series 2, image 22). No new pulm onary nodules are present. Mediastinum and Sunni: No dominant adenopathy or fluid collection. The esophagus is unremarkable. Thyroid gland: Unremarkable. Lymph nodes: Unremarkable. Pleura: No effusion or pneumothorax. Heart: The heart is not dilated. Single-vessel coronary artery calcification is present. No pericard ial effusion. Aorta: Thoracic aorta non-dilated. Upper abdomen: Unremarkable. Soft Tissues: Unremarkable. Bones: Within normal limits. IMPRESSION: Stable 4 mm right upper lobe pulmonary nodule. No new pulmonary nodules. Lung RADS Cat 2 - Benign Appearance / Behavior: Nodules with a very low likelihood of becoming a clin ically active cancer due to size or lack of growth Lung-RADS 1.0 CATEGORIES: Category 0 - Prior chest CT exam(s) being located for comparison. Category 1 - Annual screening in 12 months. No nodules or definitely benign nodules. Category 2 - Annual screening in 12 months. Benign appearance. Nodules with low likelihood of becomin g active cancer. Category 3 - 6-month follow-up. Probably benign. Short-term follow-up suggested. Nodules with low lik elihood of becoming active cancer. Category 4A - 3-month follow-up and CT/PET if >8 mm in size. Suspicious finding. Findings which requi re additional testing. Category 4B - Findings which require additional testing and tissue sampling. Suspicious finding. Category 4X - Category 3 or 4 nodules with additional features or imaging findings that increases the suspicion of malignancy. Modifier S- Potentially clinically significant finding. (Non lung cancer) RADIATION DOSE DELIVERED: 31.77mGy.cm Total DLP 31.77mGy.cmTotal DLP DATA REPOSITORY: All CT scans at this facility are submitted to the National Radiology Data Registry (NRDR) Dose Index Registry (DIR) with the [employer] (ACR). RADIATION OPTIMIZATION: All CT scans at this facility use at least one of these dose optimization te chniques: automated exposure control; mA and/or kV adjustment per patient size (includes targeted exa ms where dose is matched to clinical indication); or iterative reconstruction.
== END 2024-09-11 03:15 ==
LOC: DI 02:55
PROVIDERS: PCP Nurse Practitioner; Visit Provider Nurse Practitioner Family
DX: F17.210 Nicotine dependence, cigarettes, uncomplicated (principal); Z12.2 Encounter for screening for malignant neoplasm of respiratory organs; R91.1 Solitary pulmonary nodule
CPT/HCPCS: 71271

== ENCOUNTER 2024-09-11 09:20 | Outpatient (CLI) | payer MEDICAID, SELFPAY ==
[2024-09-11 09:46] LABS: HCT 41.8 % (36.0-46.0); MCH 31.8 pg (27.0-33.0); MCHC 33.5 % (32.0-36.0); MCV 95 fL (80-95); MPV 10.5 fL (8.0-11.0); Platelet Count 258 10^3/uL (130-400); WBC 7.11 10^3/uL (4.4-10.8)
[2024-09-11 10:09] LABS: Hemoglobin A1C 5.4 % (<5.7)
[2024-09-11 10:18] LABS: Calculated LDL 89 mg/dL (<100); Cholesterol 169 mg/dL (<200); Ferritin 165 ng/mL (8-252); HDL Cholesterol 68 mg/dL (>or=50); Triglyceride 63 mg/dL (<150)
[2024-09-12 09:38] LABS: Hepatitis C Ab w Rflx HCV PCR Negative (Negative)
[2024-09-12 09:47] LABS: HIV-1/2 Ag & Ab Screen Negative (Negative)
== END 2024-09-11 09:21 | disposition home or self-care (01) ==
LOC: LBO 09:20
PROVIDERS: PCP Nurse Practitioner; Visit Provider Nurse Practitioner Family
DX: Z00.00 Encounter for general adult medical examination without abnormal findings (principal); R44.8 Other symptoms and signs involving general sensations and perceptions
CPT/HCPCS: 36415; 80061; 85027; 86803; 87389; 82728; 83036; 84443

== ENCOUNTER 2024-09-28 02:43 | Outpatient (CLI) | payer MEDICAID, SELFPAY ==
--- NOTE | 2024-09-28 08:45 | DI.MAMMO_ITS ---
Exam(s) MAMMO SCREENING EXAM: MAMMO SCREENING CLINICAL HISTORY: screening,z12.39 TECHNIQUE: Bilateral full field digital CC and MLO mammographic images were obtained with 3D tomosyn thesis and utilizing computer aided detection (CAD). COMPARISON: Available for comparison. FINDINGS: Masses/Architectural Distortion: No suspicious masses or areas of architectural distortion are presen t. Microcalcifications: No suspicious pleomorphic-type are seen. Skin Thickening/Nipple Retraction: None. IMPRESSION: 1. No significant interval change with no specific features of malignancy noted. 2. Unless there is more urgent need, screening mammography is recommended, as per [employer] guidelines. BI-RADS Category 1 - Negative Breast Density - Category D - The breast are extremely dense, which lowers the sensitivity of the tarsha mography. Breast density Category C or D implies that the patient has dense breast tissue. Dense breast tissue can make it harder to find cancer on a mammogram. Dense breast tissue is also associated with an incr eased risk of breast cancer. This information about the result of the mammogram report was provided to the patient to raise their awareness. Use this report when you speak with the patient about their risks for breast cancer, which includes their family history. At that time, you may recommend additional screening tests (Ultrasoun d or MRI) as these tests may add significant information. A negative radiographic report should not delay biopsy if a dominant or clinically suspicious mass is present. Up to ten percent of cancers are not identified on mammography. A negative report may reinforce clinical impression. Adenosis and dense breasts may obscure an underlying neoplasm. False positive reports average 6 to 10%. Patient will receive a letter notifying them of these results.
== END 2024-09-28 03:03 ==
PROVIDERS: PCP Nurse Practitioner Family; Visit Provider Nurse Practitioner Family
DX: Z12.31 Encounter for screening mammogram for malignant neoplasm of breast (principal); R92.343 Mammographic extreme density, bilateral breasts
CPT/HCPCS: 77063; 77067